=== PATIENT | male | born 1960 | race Caucasian/White ===

== ENCOUNTER 2017-10-15 09:38 | Outpatient (CLI) | payer BC ==
--- NOTE | 2017-10-15 11:39 | RAD ---
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 COMPARISON: 10/24/2015 FINDINGS: There is no lobar consolidation, effusion, or pneumothorax. The cardiac silhouette is within normal limits in size. The chest is similar in appearance to the 10/24/2015 exam. IMPRESSION: Stable chest. POS: [facility]
== END 2017-10-15 09:39 | disposition home or self-care (01) ==
LOC: RAD 09:38
PROVIDERS: ATTEND Urology
DX: C64.9 Malignant neoplasm of unspecified kidney, except renal pelvis (principal)
CPT/HCPCS: 71046

== ENCOUNTER 2018-12-23 16:30 | Outpatient (CLI) | payer BC ==
--- NOTE | 2018-12-23 17:27 | CT ---
CT ABDOMEN AND PELVIS WITHOUT CONTRAST: 12/23/18 COMPARISON: 10/13/14. 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 Evaluate for metasta tic or recurrent disease. TECHNIQUE: Multiple contiguous axial images were obtained in a CT of the of the abdomen and pelvis without cont rast. Sagittal and coronal reformats were performed. FINDINGS: The liver, gallbladder, right kidney, adrenal glands, spleen, and pancreas are unremarkable, although evaluation is limited without IV contrast. No free air, free fluid, or stranding changes are seen i n the abdomen or pelvis. There are scattered diverticula in the colon. The small bowel is unremarkable. No abdominal or pelvic lymphadenopathy are seen. Atherosclerotic calcifications are seen in the aorta. Degenerative changes are seen in the spine. The visualized inferior thorax and abdominal wall soft ti ssues are unremarkable. IMPRESSION: 1. Postsurgical changes from prior left nephrectomy without evidence of recurrent or metastatic disease. 2. There is improvement in the previously seen fatty infiltration of the liver. POS: C
== END 2018-12-23 16:31 | disposition home or self-care (01) ==
LOC: BICCT 16:30
PROVIDERS: ATTEND Urology
DX: Z08 Encounter for follow-up examination after completed treatment for malignant neoplasm (principal); K76.0 Fatty (change of) liver, not elsewhere classified; Z85.528 Personal history of other malignant neoplasm of kidney; Z90.5 Acquired absence of kidney
CPT/HCPCS: 71046; 74176; 80053; 81001; 84153; 87086

== ENCOUNTER 2020-03-01 07:47 | Outpatient (CLI) | payer OTHER ==
--- NOTE | 2020-03-01 08:52 | RAD ---
CHEST 2 VIEWS: HISTORY: Malignant neoplasm of left kidney and extrarenal pelvis. COMPARISON: Radiograph of 2019. FINDINGS: No new suspicious pulmonary nodule. Likely a right prominent nipple shadow, unchanged from 2019. Both upper lobe calcified granuloma. Radiopaque debris along the left shoulder. No acute osseous ab normality. IMPRESSION: No evidence for metastatic disease. POS: HOME
== END 2020-03-01 07:48 | disposition home or self-care (01) ==
LOC: BICRAD 07:47
PROVIDERS: ATTEND Urology
DX: C64.2 Malignant neoplasm of left kidney, except renal pelvis (principal)
CPT/HCPCS: 36415; 71046; 80053; 81001; G0103

== ENCOUNTER → 2024-05-13 | Outpatient (CLI) | payer BC | LOC: BICCT 08:13 | PROVIDERS: ATTEND Urology | DX: C64.2 Malignant neoplasm of left kidney, except renal pelvis (principal); R91.1 Solitary pulmonary nodule; E79.0 Hyperuricemia without signs of inflammatory arthritis and tophaceous disease | CPT/HCPCS: 36415; 71046; 74178; 82565 ==